=== PATIENT | female | born 1975 | race Caucasian/White ===

== ENCOUNTER 2019-06-21 16:44 | Emergency (ER) | payer MEDICARE, OTHER ==
[~2019-06-21] VITALS: Ht 162.6 cm; Wt 72.6 kg
[2019-06-21 16:50] VITALS: BP 107/74
[2019-06-21 17:06] VITALS: BP 107/74
--- NOTE | 2019-06-21 18:07 | ER.PDOC ---
General Chief Complaint: Nausea,Vomiting,Diarrhea Stated Complaint: N/V/D Time seen by MD: 18:05 Source: family (mom) Exam Limitations: clinical condition (mental retardation) History of Present Illness Initial Comments Nausea/vomiting/diarrhea and abdominal pain for 3 days. Severity/Quality: moderate, dullness Associated Symptoms (vomiting): mild vomiting Associated Symptoms (diarrhea): watery Allergies: Coded Allergies: NSAIDS (Non-Steroidal Anti-Inflamma (Verified Allergy, Unknown, RASH, SWELLING, 06/21/19) aspirin (Verified Allergy, Unknown, SWELLING, RASH, 06/21/19) codeine (Verified Allergy, Unknown, 06/21/19) Uncoded Allergies: COLLOIDS (Allergy, Unknown, SWELLING, RASH, 06/21/19) Vital Signs First Vital Signs Date Time Temp Pulse Resp B/P (MAP) Pulse Ox O2 Delivery O2 Flow Rate FiO2 06/21/19 16:50 98.9 94 18 06/21/19 16:50 100 06/21/19 17:06 107/74 (85) Room Air Last Vital Signs Date Time Temp Pulse Resp B/P (MAP) Pulse Ox O2 Delivery O2 Flow Rate FiO2 06/21/19 19:36 101 17 107/63 (78) 99 Room Air 06/21/19 17:06 98.9 Past Medical History Medical History: no pertinent history Surgical History: no surgical history Social History Alcohol Use: none Drug Use: none Constitutional: no symptoms reported Respiratory: no symptoms reported Cardiovascular: no symptoms reported Gastrointestinal: see HPI Genitourinary: no symptoms reported All Other Systems: Reviewed and Negative Physical Exam General Appearance: No Apparent Distress, WD/WN Neck: Non-Tender, Full Range of Motion, Supple, Normal Inspection Respiratory: chest non-tender, lungs clear, normal breath sounds, no respiratory distress, no accessory muscle use Cardiovascular: Normal Peripheral Pulses, Regular Rate, Rhythm, No Edema, No Gallop, No JVD, No Murmur Gastrointestinal: Normal Bowel Sounds, No Organomegaly, No Pulsatile Mass, Tenderness (generalized) Back: Normal Inspection, No CVA Tenderness, No Vertebral Tenderness Extremities: Normal Range of Motion, Non-Tender, Normal Inspection, No Pedal Edema, No Calf Tenderness, Normal Capillary Refill, Pelvis Stable Neurologic/Psychiatric: erp specialist II-XII NML as Tested, No Motor/Sensory Deficits, Alert, Other (Neuro at her baseline per her mom) Skin: Warm/Dry, Ecchymosis (bilateral upper extremetis) Results/Orders Results/Orders Orders - IVET HURTADO MD Cbc With Auto Diff (06/21/19 17:51) Comprehensive Metabolic Panel (06/21/19 17:51) Lipase (06/21/19 17:51) Urinalysis (06/21/19 17:51) Ct Abd/Pel With Iv Contrast (06/21/19 17:51) 0.9 % Sodium Chloride (Ns 1000ml) (06/21/19 17:51) 0.9 % Sodium Chloride (Ns 1000ml) (06/21/19 18:23) Urine Culture (06/21/19 18:15) Vital Signs Date Time Temp Pulse Resp B/P (MAP) Pulse Ox O2 Delivery O2 Flow Rate FiO2 06/21/19 19:36 101 17 107/63 (78) 99 Room Air 06/21/19 17:06 98.9 94 18 107/74 (85) 100 Room Air 06/21/19 16:50 98.9 93 18 100 06/21/19 16:50 98.9 94 18 Administered Medications Medications (Trade) Dose Ordered Sig/Sergio Route PRN Reason Start Time Stop Time Status Last Admin Dose Admin Sodium Chloride 1,000 ml @ 1,200 mls/hr Q50M STAT IV 06/21/19 17:51 06/21/19 18:40 DC 06/21/19 18:24 1,200 MLS/HR Laboratory Tests Test 06/21/19 18:04 06/21/19 18:15 White Blood Count 9.4 10^3/uL (4.5-11.0) Red Blood Count 4.60 10^6/uL (4.00-5.20) Hemoglobin 12.2 g/dL (12.0-15.0) Hematocrit 36.8 % (36.0-46.0) Mean Corpuscular Volume 80.0 fL (78-100) Mean Corpuscular Hemoglobin 26.5 pg (26-34) Mean Corpuscular Hemoglobin Concent 33.2 g/dL (33-37) Red Cell Distribution Width 14.9 % (11.5-14.5) H Platelet Count 338 10^3/uL (150-400) Mean Platelet Volume 10.5 fL (7.8-11.0) Neutrophils (%) (Auto) 76.0 % (41.0-85.0) Lymphocytes (%) (Auto) 12.7 % (24.0-44.0) L Monocytes (%) (Auto) 10.7 % (5.0-12.0) Neutrophils # (Auto) 7.1 10^3/uL (1.8-7.7) Lymphocytes # (Auto) 1.2 10^3/uL (1.0-4.8) Monocytes # (Auto) 1.0 10^3/uL (0.3-0.8) H Absolute Immature Granulocyte (auto 0.02 10^3 u/L (0-2) Absolute Eosinophils (auto) 0.0 10^3/uL (0.0-0.2) Immature Granulocytes % 0.20 % (0.00-0.50) Eosinophils % 0.2 % (0.0-5.0) Basophils % 0.2 % (0.0-0.2) Basophils # 0.0 10^3/uL (0.0-0.1) Sodium Level 138 mmol/L (132-145) Potassium Level 3.1 mmol/L (3.6-5.2) L Chloride Level 101.0 mmol/L (96-109) Carbon Dioxide Level 27.3 mmol/L (20.0-32) Anion Gap 12.8 Blood Urea Nitrogen 8 mg/dL (7-18) Creatinine 0.65 mg/dL (0.59-1.40) Estimated GFR () 118.7 (>/=60) BUN/Creatinine Ratio 12.0 Glucose Level 86 mg/dL (70-110) Calcium Level 8.7 mg/dL (8.4-10.5) Total Bilirubin 0.4 mg/dL (0.2-1.0) Aspartate Amino Transferase (AST) 71 U/L (0-35) H Alanine Aminotransferase (ALT) 42 U/L (12-78) Alkaline Phosphatase 54 U/L (50-136) Total Protein 7.0 g/dL (6.4-8.2) Albumin 3.9 g/dL (3.4-5.0) Globulin 3.1 Lipase 98 U/L (114-286) L Urine Collection Type UNKNOWN Urine Color YELLOW (YELLOW) Urine Appearance CLEAR (CLEAR) Urine Bilirubin NEGATIVE MG/DL (NEGATIVE) Urine Ketones 150 mg/dL (NEGATIVE) H Urine Specific [place] 1.010 (1.005-1.035) Urine pH 6 (5.0-6.0) Urine Protein NEGATIVE (NEGATIVE) Urine Urobilinogen NORMAL (NEGATIVE) Urine Nitrate NEGATIVE (NEGATIVE) Urine Leukocyte Esterase NEGATIVE (NEGATIVE) Urine Blood 25 1+ (NEGATIVE) H Urine RBC 2-5 RBC/HPF (NONE SEEN) Urine WBC 0-2 WBC/HPF (0-2) Urine Squamous Epithelial Cells MODERATE #/HPF (FEW) Urine Bacteria RARE (NONE SEEN) Urine Glucose NORMAL (NEGATIVE) Progress Progress CT abdomen/pelvis: No acute abnormality within the abdomen or pelvis. 2. The urinary bladder is mildly distended but otherwise unremarkable. 3. Small to moderate amount of stool within the ascending colon and rectum. 4. Additional findings, as above. Patient feeling better after hydration. Patient did not have a bowel movement here Departure Time of Disposition: 20:41 Disposition: 01 HOME, SELF-CARE Impression: Primary Impression: Gastroenteritis Additional Impression: Dehydration Condition: Improved Referrals: PCP,UNKNOWN (PCP) PRIMARY CARE PROVIDER Additional Instructions: Zofran ODT Start feeding with clear liquids and advance diet as tolerated F/U with PCP in 2-3 days Push fluids Return to ED if worsening symptoms or concerns Duration or Time Spent with Pa: 60 mins Problem Qualifiers IVET HURTADO MD Jun 21, 2019 18:07
[2019-06-21 18:12] LABS: BASOPHIL % 0.2 % (0.0-0.2); EOSINOPHIL % 0.2 % (0.0-5.0); LYMPHOCYTES # 1.2 10^3/uL (1.0-4.8); LYMPHOCYTES % 12.7 % (24.0-44.0); MEAN CORP HGB 26.5 pg (26-34); MONOCYTES % 10.7 % (5.0-12.0); NEUTROPHIL # 7.1 10^3/uL (1.8-7.7); RED CELL DISTRIBUTION WIDTH 14.9 % (11.5-14.5)
[2019-06-21] MEDS ORDERED: NS 1000ML 1,000 ML ONE (18:23)
[2019-06-21] MEDS: NS 1000ML 1,000 ML IV STA (18:24)
[2019-06-21 18:30] LABS: CALCIUM 8.7 mg/dL (8.4-10.5); CARBON DIOXIDE 27.3 mmol/L (20.0-32)
[2019-06-21 18:31] LABS: APPEARANCE,URINE CLEAR (CLEAR); BILIRUBIN,URINE NEGATIVE (NEGATIVE); UA COLOR YELLOW (YELLOW); UROBILINOGEN,URINE NORMAL (NEGATIVE)
[2019-06-21 19:36] VITALS: BP 107/63
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
--- NOTE | 2019-06-21 20:08 | DIREP ---
PROCEDURE:CT ABD/PELVIS WITH CONTRAST TECHNIQUE:No oral contrast was given. Following the intravenous administration of contrast material, venous phase cuts were obtained through the abdomen and pelvis. The images were viewed at lung, liver, bone, and soft tissue settings. Sagittal and coronal reconstructions are provided. COMPARISON:None. INDICATIONS:Abdominal pain FINDINGS: LOWER CHEST:The lung bases are clear. LIVER:Mild fatty infiltration along the falciform ligament. Tiny, too small to characterize, hypodensities in the right hepatic dome and posterior right hepatic lobe likely represent tiny cysts. No suspicious hepatic lesion. BILIARY:Normal. PANCREAS:Normal. SPLEEN:Normal. URINARY TRACT:Normal kidneys. Symmetric renal enhancement. No hydronephrosis. The bladder is mildly distended but otherwise unremarkable. ADRENALS:Normal. AORTA/VASCULAR:Normal. RETROPERITONEUM:Normal. No enlarged lymph nodes. BOWEL/MESENTERY:Somewhat limited evaluation due to lack of oral contrast. No obstructive or inflammatory changes. Small to moderate amount of stool within the ascending colon and rectum. A normal appendix is seen within the right lower quadrant. No free fluid, free air, or adenopathy. ABDOMINAL WALL:Unremarkable. PELVIS:The uterus and adnexa are normal for age. No pelvic free fluid or adenopathy. Tiny left pelvic phlebolith. BONES:Minimal degenerative changes involving the lumbar spine. No acute abnormality or suspicious osseous lesion. OTHER:Normal. CONCLUSION: 1. No acute abnormality within the abdomen or pelvis. 2. The urinary bladder is mildly distended but otherwise unremarkable. 3. Small to moderate amount of stool within the ascending colon and rectum. 4. Additional findings, as above. Dictated by: Fernando Rodriguez MD on 06/21/2019 at 08:02 PM
[2019-06-21 20:54] VITALS: BP 121/59
--- NOTE | 2019-06-21 21:02 | NUR ---
[facility] NOTIFIED JERAMY ID#[id number] OF PATIENT BEING DISCHARGED.
== END 2019-06-21 21:23 | disposition home or self-care (01) ==
LOC: ER 16:44
DX: K52.9 Noninfective gastroenteritis and colitis, unspecified (principal); E86.0 Dehydration; F79 Unspecified intellectual disabilities; Z88.5 Allergy status to narcotic agent; Z88.6 Allergy status to analgesic agent
CPT/HCPCS: 36415; 74177; 80053; 81000; 83690; 85025; 87086; 96360; 99285; J7030; Q9965

== ENCOUNTER 2019-06-23 01:21 | Emergency (ER) | payer MEDICARE, MEDICAID ==
[2019-06-23] MEDS ORDERED: NS 1000ML 1,000 ML STA (01:46)
[2019-06-23 01:51] VITALS: BP 141/73
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
[2019-06-23 02:01] LABS: BASOPHIL % 0.2 % (0.0-0.2); EOSINOPHIL # 0.1 10^3/uL (0.0-0.2); EOSINOPHIL % 0.7 % (0.0-5.0); LYMPHOCYTES # 1.4 10^3/uL (1.0-4.8); LYMPHOCYTES % 15.7 % (24.0-44.0); MEAN CORP HGB 26.5 pg (26-34); MONOCYTES # 0.9 10^3/uL (0.3-0.8); NEUTROPHIL # 6.7 10^3/uL (1.8-7.7); RED CELL DISTRIBUTION WIDTH 14.7 % (11.5-14.5)
[2019-06-23 02:17] LABS: CALCIUM 8.4 mg/dL (8.4-10.5)
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
[2019-06-23] MEDS ORDERED: KLOR-CON 10 PO ONE (02:23)
[2019-06-23] MEDS ORDERED: POTASSIUM CHLORIDE ONE (02:30)
[2019-06-23] MEDS ORDERED: POTASSIUM CHLORIDE PO STA (02:44)
--- NOTE | 2019-06-23 02:51 | NUR ---
TPC NOTIFIED TPC OF NEED FOR EVALUATION
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
[2019-06-23] MEDS ORDERED: ATIVAN ONE (03:34)
[2019-06-23] MEDS ORDERED: ATIVAN PO STA (03:38)
[2019-06-23 04:12] VITALS: BP 105/71
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
--- NOTE | 2019-06-23 04:21 | NUR ---
PRESS MAINTAINER ABDOULAYE FLORES AND SHEREE NOTIFIED
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
--- NOTE | 2019-06-23 04:30 | NUR ---
TPC SPOKW WITH CHESTER FROM TPC. VALERIE STATED SHE WILL CONTACT TORREY REGARDING SITUATION
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
--- NOTE | 2019-06-23 05:30 | NUR ---
[place] [facility] [place] [facility] [place]IT
--- NOTE | 2019-06-23 06:01 | NUR ---
DEPUTY PRICILLA GARCÍA TRANSFERRED CARE TO DEPUTY PLEITEZ AT THIS TIME
[2019-06-23 06:39] VITALS: BP 102/61
--- NOTE | 2019-06-23 08:31 | NUR ---
RUSS LEI FROM [facility] HERE TALKING WITH [facility] SAMUTVenecia JOLLEY.
--- NOTE | 2019-06-23 08:34 | NUR ---
TRANSPORTATION APS DISCUSSING TRANSPORTATION WITH HER NICKER AT THIS TIME.
--- NOTE | 2019-06-23 08:45 | NUR ---
UPDATE LT. SHOLA CAN NOT GET PATIENT TO [facility] UNTIL 3:30 TODAY, PATIENT WILL REMAIN IN THE ED WITH RESEARCH AGRICULTURAL ENGINEER'S OFFICE DEPUTY UNTIL ABLE TO TRANSPORT
--- NOTE | 2019-06-23 08:49 | NUR ---
BREAKFAST BREAKFAST OFFERED TO PATIENT, PATIENT COVERING EARS AND DOESN'T WANT TO EAT, WILL LEAVE MEAL AT BEDSIDE.
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
--- NOTE | 2019-06-23 09:50 | NUR ---
[facility] AND SPOKE WITH CHASTITY ABOUT CHAIN OF CUSTODY OF CLOTHING, CHASTITY WILL SPEAK TO THE NURSE AND CALL US BACK.
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
--- NOTE | 2019-06-23 10:01 | NUR ---
PATIENT REPORTS "IT HURTS"... ASSISTED PATIENT UP FROM RESTROOM AFTER PATIENT SITTING ON TOILET - ADVISED PATIENT THAT PAD AND PANTIES WOULD NOT BE ABLE TO BE CHANGED AT THIS POINT - PAINT STANDING UP FROM TOILET AND SAYS "IT HURTS SO BAD". INQUIRED WITH PATIENT IF BLOOD WAS FROM AN INJURY OR HER PERIOD, SHE DID NOT RESPOND DIRECTLY TO QUESTIONS BUT SAID "IT HURTS SO BAD".
--- NOTE | 2019-06-23 10:38 | NUR ---
UPDATE APS TALKING WITH FAMILY, WILL BE TO THE ED SOON TO TAKE PATIENT TO [facility].
--- NOTE | 2019-06-23 11:22 | NUR ---
UPDATE CONTINUE TO AWAIT APS ARRIVAL FOR TRANSPORT. OFFICER PRICILLA IN THE ED, PATIENT RESTING ON GURNEY WITH EYES CLOSED, NO DISTRESS NOTED.
--- NOTE | 2019-06-23 11:51 | NUR ---
STATUS APS DISCUSSING WITH ED DIRECTOR ABOUT TRANSPORTATION.
--- NOTE | 2019-06-23 12:01 | NUR ---
KARRIE SOFIA, APS EXECUTIVE [employer] HOST, AND [employer]AT[employer] WHACKER SPEAKING WITH APS EXECUTIVE [employer] HOST ABOUT TRANSPORT TO [facility] FOR EXAM. APS WORKER CAN NOT TRANSPORT PATIENT, SHE CAN RIDE WITH LAW ENFORCEMENT ON TRANSFER.
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
[2019-06-23 13:12] VITALS: BP 100/58
== END 2019-06-23 13:10 | disposition home or self-care (01) ==
LOC: ER 01:21 → EEVIPCON 01:21 → ER 13:10
DX: F98.9 Unspecified behavioral and emotional disorders with onset usually occurring in childhood and adolescence (principal); R62.59 Other lack of expected normal physiological development in childhood; Z88.5 Allergy status to narcotic agent; Z88.6 Allergy status to analgesic agent
CPT/HCPCS: 36415; 80053; 82150; 83690; 84703; 85025; 99284; J3490